=== PATIENT | female | born 1940 | race Caucasian/White ===

== ENCOUNTER 2022-12-03 17:36 | Emergency (ER) | payer MEDICARE, OTHER ==
[2022-12-03] MEDS ORDERED: Tranexamic Acid 1,000 MG/10 ML Vial TOP ONE (18:13)
[2022-12-03] MEDS ORDERED: Oxymetazoline 0.05% Nasal Spray 30 ML Bottle NAS ONE (18:13)
[2022-12-03] MEDS ORDERED: Lidocaine 1% with EPINEPHrine 1:100,000 10 ML MDV INJECT ONE (18:13)
[2022-12-03] MEDS ORDERED: Lidocaine/EPINEPHrine/Tetracaine Soln 1 ML ONE (18:17)
[2022-12-03] MEDS ORDERED: Lidocaine/EPINEPHrine/Tetracaine Soln 1 ML TOP ONE (18:42)
== END 2022-12-03 19:39 | disposition home or self-care (01) ==
LOC: EDBD 17:36 → JD.ED 17:36
DX: R04.0 Epistaxis (principal); Z86.73 Personal history of transient ischemic attack (TIA), and cerebral infarction without residual deficits; Z88.0 Allergy status to penicillin; Z88.2 Allergy status to sulfonamides
CPT/HCPCS: 30903; 99283; A9270; 30901; 99282; J3490

== ENCOUNTER 2022-12-03 21:42 | Emergency (ER) | payer MEDICARE, OTHER ==
[2022-12-04] MEDS ORDERED: Tranexamic Acid 1,000 MG/10 ML Vial IV ONE (02:50)
[2022-12-04] MEDS ORDERED: Oxymetazoline 0.05% Nasal Spray 30 ML Bottle NAS ONE (04:13)
[2022-12-04] MEDS ORDERED: hydrALAZINE 20 MG/ML SDV IVPUSH ONE (04:15)
== END 2022-12-04 05:11 | disposition home or self-care (01) ==
LOC: JD.ED 21:42
DX: R04.0 Epistaxis (principal); Z79.01 Long term (current) use of anticoagulants; Z88.0 Allergy status to penicillin; Z88.2 Allergy status to sulfonamides
CPT/HCPCS: 30903; 96374; 96375; 99283; A9270; J0360; 30901; 99284; J3490